=== PATIENT | female | born 2000 | race Caucasian/White ===

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

== ENCOUNTER 2020-10-05 19:07 | Outpatient (CLI) | payer MEDICAID | END 2020-10-05 19:08 | disposition EMS.NT | LOC: EMS 19:07 | DX: R10.32 Left lower quadrant pain (principal); R10.31 Right lower quadrant pain; R11.0 Nausea ==

== ENCOUNTER 2020-10-05 23:52 | Outpatient (CLI) | payer MEDICAID | END 2020-10-05 23:53 | disposition critical access hospital (66) | LOC: EMS 23:52 | DX: R10.9 Unspecified abdominal pain (principal) | CPT/HCPCS: A0425; A0427; A0999 ==

== ENCOUNTER 2020-10-06 00:12 | Inpatient (IN) | payer MEDICAID ==
[2020-10-06] MEDS ORDERED: ONDANSETRON 4 MG/2 ML VIAL IVP STA (00:22)
[2020-10-06] MEDS ORDERED: SODIUM CHLORIDE 0.9% 1,000 ML IV STA (00:22)
--- NOTE | 2020-10-06 00:24 | ED Physician Documentation ---
History of Present Illness - Stated complaint Stated Complaint: ABD PAIN - Chief complaint Chief Complaint: Abd Pain - History obtained from History obtained from: Patient - Additonal information Additional information: 19-year-old woman with history of gluten intolerance, possible lactose intolerance, and osteoporosis presents with right lower abdominal pain gradual in onset at 1 PM, intermittent, aching, radiating diffusely to the anterior abdomen, associated with nausea and one episode of vomitus after trying to take Motrin with soda and throwing it up. Pain improved at 1:30 PM after having a bowel movement but then recurred. Patient called EMS at 7 PM but was not brought to the hospital. She called again just prior to arrival and had 9 out of 10 pain at the time. An IV was placed and she was given 100 ucg of fentanyl IV with resulting 1 out of 10 pain. LMP 09/28 Review of Systems Ten Systems: 10 systems reviewed and negative Constitutional: denies: Fever, Chills Cardiac: denies: Chest pain / pressure Respiratory: denies: Dyspnea GI: reports: Abdominal Pain, Nausea, Vomiting. 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 : None HEENT: None Psych: None Musculoskeletal: Osteoarthritis Derm: None - Past Surgical History Past Surgical History: No - Present Medications Home Medications: Ambulatory Orders Medication Instructions Recorded Confirmed Albuterol 2.5 mg INH Q4H PRN 10/06/20 10/06/20 Alprazolam [Xanax] 0.5 mg PRN PRN 10/06/20 10/06/20 Sertraline [Zoloft] 25 mg PO DAILY 10/06/20 10/06/20 - Allergies Allergies/Adverse Reactions: Allergies Allergy/AdvReac Type Severity Reaction Status Date / Time gluten Allergy Nausea Verified 10/06/20 00:20 wheat Allergy Nausea Verified 10/06/20 00:20 - Social History Does the pt smoke?: No Smoking Status: Never smoker Does the pt drink ETOH?: No Does the pt have substance abuse?: No - Immunizations Immunizations are current?: Yes - POLST Patient has POLST: No PD ED PE NORMAL - Vitals Vital signs reviewed: Yes - General General: Alert and oriented X 3, No acute distress, Well developed/nourished - HEENT HEENT: Atraumatic, PERRL, EOMI - Neck Neck: Supple, no meningeal sign - Cardiac Cardiac: RRR - Respiratory Respiratory: No respiratory distress, Clear bilaterally - Abdomen Abdomen: Non tender, Non distended - Derm Derm: Normal color - Extremities Extremities: No deformity - Neuro Neuro: Alert and oriented X 3 - Psych Psych: Normal mood, Normal affect Results - Vitals Vitals: Oxygen O2 Source Room air - Labs Labs: Laboratory Tests 10/06/20 10/06/20 10/06/20 00:15 00:30 00:30 WBC 14.1 H RBC 5.12 Hgb 15.7 Hct 44.7 MCV 87.3 MCH 30.7 MCHC 35.1 RDW 13.3 Plt Count 315 MPV 9.0 Neut # (Auto) 12.8 H Lymph # (Auto) 1.1 L [place] # (Auto) 0.2 Eos # (Auto) 0.0 Baso # (Auto) 0.0 Absolute Nucleated RBC 0.00 Nucleated RBC % 0.0 Sodium 137 Potassium 3.8 Chloride 103 Carbon Dioxide 22 Anion Gap 12.0 BUN 14 Creatinine 0.6 Estimated GFR (MDRD) 127 Glucose 150 H Calcium 9.5 Total Bilirubin 1.0 AST 22 ALT 24 Alkaline Phosphatase 80 Total Protein 8.4 H Albumin 4.8 Globulin 3.6 Albumin/Globulin Ratio 1.3 Lipase 22 Urine Color YELLOW Urine Clarity CLEAR Urine pH 8.0 H Ur Specific [place] 1.020 Urine Protein 30 H Urine Glucose (UA) NEGATIVE Urine Ketones TRACE Urine Occult Blood NEGATIVE Urine Nitrite NEGATIVE Urine Bilirubin NEGATIVE Urine Urobilinogen 0.2 (NORMAL) Ur Leukocyte Esterase NEGATIVE Urine RBC 0-5 Urine WBC 0-3 Ur Squamous Epith Cells FEW Squamous Urine Bacteria Rare Urine Mucus Moderate Strands Ur Microscopic Review INDICATED Urine Culture Comments NOT INDICATED Urine HCG, Qual NEGATIVE Nasal Adenovirus (PCR) Nasal B. parapertussis DNA (PCR) Nasal Coronavir 229E PCR Nasal Coronavir HKU1 PCR Nasal Coronavir NL63 PCR Nasal Coronavir OC43 PCR Nasal Enterovir/Rhinovir PCR Nasal Influenza B PCR Nasal Influenza A PCR Nasal Parainfluen 1 PCR Nasal Parainfluen 2 PCR Nasal Parainfluen 3 PCR Nasal Parainfluen 4 PCR Nasal RSV (PCR) Nasal B.pertussis DNA PCR Nasal C.pneumoniae (PCR) Yo Human Metapneumo PCR Nasal M.pneumoniae (PCR) Nasal SARS-CoV-2 (PCR) 10/06/20 05:05 WBC RBC Hgb Hct MCV MCH MCHC RDW Plt Count MPV Neut # (Auto) Lymph # (Auto) [place] # (Auto) Eos # (Auto) Baso # (Auto) Absolute Nucleated RBC Nucleated RBC % Sodium Potassium Chloride Carbon Dioxide Anion Gap BUN Creatinine Estimated GFR (MDRD) Glucose Calcium Total Bilirubin AST ALT Alkaline Phosphatase Total Protein Albumin Globulin Albumin/Globulin Ratio Lipase Urine Color Urine Clarity Urine pH Ur Specific [place] Urine Protein Urine Glucose (UA) Urine Ketones Urine Occult Blood Urine Nitrite Urine Bilirubin Urine Urobilinogen Ur Leukocyte Esterase Urine RBC Urine WBC Ur Squamous Epith Cells Urine Bacteria Urine Mucus Ur Microscopic Review Urine Culture Comments Urine HCG, Qual Nasal Adenovirus (PCR) NOT DETECTED Nasal B. parapertussis DNA (PCR) NOT DETECTED Nasal Coronavir 229E PCR NOT DETECTED Nasal Coronavir HKU1 PCR NOT DETECTED Nasal Coronavir NL63 PCR NOT DETECTED Nasal Coronavir OC43 PCR NOT DETECTED Nasal Enterovir/Rhinovir PCR NOT DETECTED Nasal Influenza B PCR NOT DETECTED Nasal Influenza A PCR NOT DETECTED Nasal Parainfluen 1 PCR NOT DETECTED Nasal Parainfluen 2 PCR NOT DETECTED Nasal Parainfluen 3 PCR NOT DETECTED Nasal Parainfluen 4 PCR NOT DETECTED Nasal RSV (PCR) NOT DETECTED Nasal B.pertussis DNA PCR NOT DETECTED Nasal C.pneumoniae (PCR) NOT DETECTED Yo Human Metapneumo PCR NOT DETECTED Nasal M.pneumoniae (PCR) NOT DETECTED Nasal SARS-CoV-2 (PCR) NOT DETECTED PD MEDICAL DECISION MAKING - ED course ED course: 19-year-old woman presents with mild abdominal pain without any findings on vital signs or physical exam. Will obtain lab work and reevaluate. Differential considered. CT with large 9cm dermoid cyst in central pelvis. u/s performed with good flow to L ovary. R ovary nonvisualized. patient completely asymptomatic now. d/w Dr. Bahena who will see the patient. Dr. Bahena took patient to OR with suspicion for ovarian torsion. Departure - Departure Disposition: 66 [facility] DC/Xfer Clinical Impression: Dermoid cyst, Abdominal pain Condition: Good Discharge Date/Time: 10/06/20 06:00
[2020-10-06 00:40] LABS: BASOPHILS % (AUTO) 0.2 %; HCT - HEMATOCRIT 44.7 % (37.0-47.0); HGB - HEMOGLOBIN 15.7 g/dL (12.0-16.0); LYMPHOCYTES # (AUTO) 1.1 10^3/uL (1.5-3.5); LYMPHOCYTES % (AUTO) 7.7 %; MEAN CORPUSCULAR HEMOGLOBIN 30.7 pg (27.0-31.0); MEAN CORPUSCULAR HGB CONC 35.1 g/dL (32.0-36.0); MEAN CORPUSCULAR VOLUME 87.3 fL (81.0-99.0); MONOCYTES # (AUTO) 0.2 10^3/uL (0.0-1.0); MONOCYTES % (AUTO) 1.3 %; NEUTROPHILS # (AUTO) 12.8 10^3/uL (1.5-6.6); NEUTROPHILS % (AUTO) 90.5 %; PLT - PLATELET COUNT 315 10^3/uL (130-450); RED BLOOD COUNT 5.12 10^6/uL (4.20-5.40); RED CELL DISTRIBUTION WIDTH 13.3 % (12.0-15.0); WHITE BLOOD COUNT 14.1 x10^3/uL (4.8-10.8)
[2020-10-06 00:46] LABS: GLUCOSE, URINE (UA) NEGATIVE (NEGATIVE); KETONES,URINE (UA) TRACE mg/dL (NEGATIVE); LEUKOCYTE ESTERASE, URINE NEGATIVE (NEGATIVE); NITRITE,URINE NEGATIVE (NEGATIVE); OCCULT BLOOD,URINE NEGATIVE (NEGATIVE); PROTEIN,URINE 30 mg/dL (NEGATIVE); UROBILINOGEN,URINE 0.2 (NORMAL) E.U./dL (NORMAL)
[2020-10-06 00:52] LABS: BACTERIA,URINE Rare /HPF (None Seen); BILIRUBIN,URINE NEGATIVE (NEGATIVE); CLARITY,URINE CLEAR (CLEAR); HCG UR QUAL NEGATIVE; ICTOTEST,URINE NEGATIVE; MUCUS,URINE Moderate Strands; RBC,URINE 0-5 /HPF (0-5); SQUAMOUS EPITHELIAL CELL,UR FEW Squamous (<= Few); WBC,URINE 0-3 /HPF (0-5)
[2020-10-06 00:52] LABS: ALBUMIN 4.8 g/dL (3.2-5.5); ALBUMIN/GLOBULIN RATIO 1.3 (1.0-2.2); CALCIUM 9.5 mg/dL (8.5-10.3); CREATININE 0.6 mg/dL (0.4-1.0); POTASSIUM 3.8 mmol/L (3.5-5.0); TOTAL PROTEIN 8.4 g/dL (6.7-8.2)
[2020-10-06] MEDS ORDERED: HYDROmorphone 1 MG/ML CARPUJECT IVP STA ×2 (01:00→05:17)
[2020-10-06] MEDS ORDERED: IOPAMIDOL-300 100 ML VIAL ONE ×2 (01:15→01:32)
[2020-10-06] MEDS ORDERED: IOPAMIDOL-300 100 ML VIAL IVP ONE (01:43)
[2020-10-06] MEDS ORDERED: KETOROLAC 15 MG/ML VIAL IVP STA (03:06)
--- NOTE | 2020-10-06 04:49 | HISTORY & PHYSICAL EXAMINATION ---
History and Physical - History and Physical Identification: Patient is a 19-year-old G0, P0 female whose running 28-day cycles. Chief complaint right sided abdominal pelvic pain. History of present illness: Patient states that roughly 1330 this afternoon she developed right sided pelvic pain. It became progressively worse. She d escribes it as a crampy constant pain. She called the EMS service initially at 7:00 but declined being taken to the hospital. She called them again and presented. She has had a CT as well as an MRI that shows evidence of a 9 cm cystic mass in the pelvis it contains what appears to be fat as well as calcific nodules. This is compatible with a dermoid cyst. Patient denies any prior history of this. She states she is having regular 28-day cycles. Patient has received her Covid vaccinations. Past medical history: positive for osteopenia, celiac disease, and asthma Surgical history: none Allergies: none known Current medication:Celexa, alprazolam, and albuterol. Habits: patient denies use of tobacco and alcohol does occasional tetrahydrocannabinol Social history: Patient lives with boyfriend and his parents. She is currently unemployed. She is planning to move to [place] in 2 days. Family history: Patient states positive for diabetes. Review of systems: Patient states that she is in good health at this time she has occasional diarrhea secondary to her celiac disease. Physical examination: Patient is a well-developed well-nourished white female she is currently resting easily she has had Dilaudid as well as fentanyl at this point. HEENT pupils are equal round extraocular muscles intact Heart: Regular rate and rhythm without murmurs Lungs: Clear without rales or wheezes Back: No spinal or CVA tenderness noted. Abdomen is corpulent it has good bowel sounds. There is tenderness in the right lower quadrant. Labs:CMP is negative with the exception of elevated blood sugar at 150 CBC shows a white count of 14.1 hemoglobin is 9.7 platelets are 315. Her urine hCG is negative CT and MRI are both compatible with a dermoid cyst which is 9 cm in diameter. Impression: 19-year-old with a torsed right ovary with a 9 cm dermoid cyst Plan: We will perform laparotomy with removal of the right ovary and tube. Risks and benefits have been explained to the patient including those but not limited to, bleeding, infection, injury to the pelvic organs. She is aware of the potential for DVT with PE. She is also aware of the postop adhesions which could cause pain, bowel obstruction, as well as infertility.
[2020-10-06] MEDS ORDERED: fentaNYL 100 MCG/2 ML VIAL ONE (05:19)
[2020-10-06] MEDS ORDERED: MIDAZOLAM 2 MG/2 ML VIAL ONE (05:20)
[2020-10-06] MEDS ORDERED: BUPIVACAINE 0.25% PF 30 ML VIAL ONE (05:33)
--- NOTE | 2020-10-06 05:35 | ANESTHESIA ---
Pre-Anesthesia VS, & Labs - Diagnosis right ovarian cyst - Procedure exploratory laparatomy Vital Signs: Temp Pulse Resp BP Pulse Ox 36.8 C 100 18 152/87 H 95 10/06/20 00:14 10/06/20 01:02 10/06/20 01:02 10/06/20 01:02 10/06/20 03:00 Height: 5 ft 2 in Weight (kg): 108.862 kg Body Mass Index: 43.9 BMI Classification: Morbidly Obese - NPO >8 hours - Is Patient ?: No - Lab Results Current Lab Results: Laboratory Tests 10/06/20 00:30: Sodium 137, Potassium 3.8, Chloride 103, Carbon Dioxide 22, Anion Gap 12.0, BUN 14, Creatinine 0.6, Estimated GFR (MDRD) 127, Glucose 150 H, Calcium 9.5, Total Bilirubin 1.0, AST 22, ALT 24, Alkaline Phosphatase 80, Total Protein 8.4 H, Albumin 4.8, Globulin 3.6, Albumin/Globulin Ratio 1.3, Lipase 22 10/06/20 00:30: WBC 14.1 H, RBC 5.12, Hgb 15.7, Hct 44.7, MCV 87.3, MCH 30.7, MCHC 35.1, RDW 13.3, Plt Count 315, MPV 9.0, Neut # (Auto) 12.8 H, Lymph # (Auto) 1.1 L, [place] # (Auto) 0.2, Eos # (Auto) 0.0, Baso # (Auto) 0.0, Absolute Nucleated RBC 0.00, Nucleated RBC % 0.0 Fish Bones: 10/06/20 00:30 10/06/20 00:30 Home Medications and Allergies Home Medications: Ambulatory Orders Albuterol 2.5 mg INH Q4H PRN 10/06/20 Alprazolam [Xanax] 0.5 mg PRN PRN 10/06/20 Sertraline [Zoloft] 25 mg PO DAILY 10/06/20 Albuterol 2.5 mg INH Q4H PRN 10/06/20 Alprazolam [Xanax] 0.5 mg PRN PRN 10/06/20 Sertraline [Zoloft] 25 mg PO DAILY 10/06/20 Allergies/Adverse Reactions: Allergies Allergy/AdvReac Type Severity Reaction Status Date / Time gluten Allergy Nausea Verified 10/06/20 00:20 wheat Allergy Nausea Verified 10/06/20 00:20 Anes History & Medical History - Anesthetic History Anesthesia Complications: reports: No previous complications - Medical History Cardiovascular: reports: None Pulmonary: reports: Asthma Gastrointestinal: reports: None Urinary: reports: None Neuro: reports: None Musculoskeletal: reports: Osteoarthritis Endocrine/Autoimmune: reports: None Blood Disorders: reports: None Skin: reports: None Smoking Status: Never smoker Exam General: Alert Dental: WNL Mallampati classification: II Respiratory: Lungs clear Cardiovascular: Regular rate Plan Anesthesia Type: General Consent for Procedure(s) Verified and Reviewed: Yes Code Status: Attempt Resuscitation ASA classification: 2-Mild systemic disease Is this case an emergency?: Yes
[2020-10-06 06:20] LABS: B. PARAPERTUSSIS- RESP PCR PAN NOT DETECTED; B. PERTUSSIS- RESP PCR PANEL NOT DETECTED; C. PNEUMONIAE- RESP PCR PANEL NOT DETECTED; CORONAVIRUS 229E-RESP PCR NOT DETECTED; CORONAVIRUS HKU1-RESP PCR NOT DETECTED; CORONAVIRUS NL63-RESP PCR NOT DETECTED; CORONAVIRUS OC43-RESP PCR NOT DETECTED; HUMAN METAPNEUMOVIRUS NOT DETECTED; INFLUENZA A- RESP PCR PANEL NOT DETECTED; INFLUENZA B - RESP PCR PANEL NOT DETECTED; M. PNEUMONIAE- RESP PCR PANEL NOT DETECTED; PARAINFLUENZA VIRUS 1 NOT DETECTED; PARAINFLUENZA VIRUS 2 NOT DETECTED; PARAINFLUENZA VIRUS 3 NOT DETECTED; PARAINFLUENZA VIRUS 4 NOT DETECTED; RHINOVIRUS/ENTEROVIRUS NOT DETECTED; RSV- RESP PCR PANEL NOT DETECTED; SARS-CoV-2 -RESP PCR PANEL NOT DETECTED
[2020-10-06] MEDS ORDERED: DEXAMETHASONE 4 MG/ML VIAL ONE (06:23)
[2020-10-06] MEDS ORDERED: ONDANSETRON 4 MG/2 ML VIAL ONE (06:23)
[2020-10-06] MEDS ORDERED: BUPIVACAINE 0.25% PF 30 ML VIAL IM ONE (06:32)
[2020-10-06] MEDS ORDERED: LIDOCAINE-MPF 2% 5 ML VIAL ONE (06:34)
[2020-10-06] MEDS ORDERED: ACETAMINOPHEN 1,000 MG/100 ML 100 ML IV ONE (06:34)
[2020-10-06] MEDS ORDERED: PROPOFOL 200 MG/20 ML VIAL IVP ONE (06:34)
[2020-10-06] MEDS ORDERED: ROCURONIUM 50 MG/5 ML VIAL ONE (06:34)
[2020-10-06] MEDS ORDERED: KETOROLAC 30 MG/ML VIAL ONE (06:35)
[2020-10-06] MEDS ORDERED: ONDANSETRON 4 MG/2 ML VIAL IVP PRN ×2 (06:42→07:30)
[2020-10-06] MEDS ORDERED: fentaNYL 100 MCG/2 ML VIAL IVP PRN (06:42)
[2020-10-06] MEDS ORDERED: ePHEDrine 50 MG/ML VIAL IVP PRN (06:42)
[2020-10-06] MEDS ORDERED: NALOXONE 0.4 MG/ML VIAL IVP PRN (06:42)
[2020-10-06] MEDS ORDERED: MORPHINE 2 MG/ML CARPUJECT IVP PRN (06:42)
[2020-10-06] MEDS ORDERED: HYDROmorphone 0.5 MG/0.5 ML SYRINGE IVP PRN ×2 (06:42→07:30)
[2020-10-06] MEDS ORDERED: ATROPINE ABBOJECT 1 MG/10 ML SYRINGE IVP PRN (06:42)
[2020-10-06] MEDS ORDERED: LACTATED RINGERS 1,000 ML IV SCH (07:00)
--- NOTE | 2020-10-06 07:12 | CT Report ---
PROCEDURE: Abdomen/Pelvis W INDICATIONS: RLQ pain X 1 day with n/v CONTRAST: IV CONTRAST: Isovue 300 ml: 100 PO CONTRAST: *NO PO CONTRAST TECHNIQUE: After the administration of intravenous contrast, 5 mm thick sections acquired from the diaphragms to the symphysis. 5 mm thick coronal and sagittal reformats were acquired. For radiation dose reducti on, the following was used: automated exposure control, adjustment of mA and/or kV according to patti ent size. COMPARISON: Ultrasound pelvis, 10/06/2020. FINDINGS: Image quality: Excellent. ABDOMEN: Lung bases: Lung bases are clear. Heart size is normal. Solid organs: Liver and spleen are normal in size and enhancement. Gallbladder is normal. Biliary system is non dilated. Pancreas enhances normally. No adrenal nodules. Kidneys demonstrate normal size and enhancement, without hydronephrosis. Peritoneum and bowel: Bowel loops demonstrate normal wall thickness and caliber. No findings to sug gest acute appendicitis. No free fluid or air. Nodes and vessels: No retroperitoneal or mesenteric adenopathy by size criteria. Aorta and inferior vena cava are normal in size. Miscellaneous: No ventral hernias. PELVIS: Genitourinary: Bladder wall thickness is normal. Bladder is contracted. There is a predominantly cystic mass in the pelvis at midline measuring 8.2 x 9.3 x 8.3 cm. There is a fat-containing components measuring 2.6 x4.8 x 3.4 centimeter with partial calcification. It is mos t likely a large (dermoid cyst. Uterus is normal. No pathological free fluid in pelvis. Miscellaneous: No inguinal hernias or adenopathy. Bones: No suspicious bony lesions. No vertebral body compression fractures. IMPRESSION: 1. No acute abnormalities in abdomen or pelvis. 2. A large 8.2 x 9.3 x 8.3 cm cystic mass containing fat and calcification, compatible with a dermoid s cyst. No significant discrepancy with the preliminary interpretation. Reviewed by: Jacqueline Hernandez MD on 10/06/2020 7:11 AM PDT Approved by: Jacqueline Hernandez MD on 10/06/2020 7:11 AM PDT Station ID: [id number]
[2020-10-06] MEDS ORDERED: ROPIVACAINE 0.5% PF 20 ML AMPULE ONE (07:14)
[2020-10-06] MEDS ORDERED: SUGAMMADEX 200 MG/2 ML VIAL IVP ONE (07:20)
[2020-10-06] MEDS ORDERED: oxyCODONE 5 MG TABLET PO PRN (07:30)
[2020-10-06] MEDS ORDERED: LORazepam 2 MG/ML VIAL IVP PRN (07:30)
--- NOTE | 2020-10-06 07:35 | OPERATIVE REPORT ---
Operative Report - General Procedure Date: 10/06/20 Planned Procedure: Laparotomy with removal of right ovarian dermoid cyst and ovary. Pre-Op Diagnosis: Torsed 9 cm right ovarian dermoid cyst Procedure Performed: Laparotomy with right salpingo-oophorectomy Post Op Diagnosis: Torsed 9 cm right ovarian cyst - Procedure Note Primary Surgeon: Ryne Bahena MD Anesthesia Provider: Elizabeth Perez CRNA Anesthesia Technique: General ET tube IV Fluids (mL): 800 Estimated Blood Loss (mL): 10 Urine Output (mL): 350 Indications: Right tube and ovary torsed 9 cm right ovarian cyst. Findings: Upon entering the abdominal cavity the right ovary appeared to be twisted about 2 times around its pedicle. It was very discolored there is hemorrhage in the tube as well as the ovary. The left tube and ovary appeared to be free of disease. Complications: Patient was in the supine position following adequate endotracheal anesthesia patient was prepped for Green placement. This was performed following this her legs were straightened. She was prepped and draped in the usual fashion. A timeout was performed which concerns were identified. A Pfannenstiel incision was carried out which was roughly 28 cm in length. This was carried down to subcutaneous tissue to the fascia. The fascia was incised transversely then using both blunt and sharp dissection it was freed from the rectus abdominis. Hemostasis was obtained on the way in utilizing electrocautery. At this point an O'Agapito-O'Garibay retractor was placed care was taken to avoid any inclusion of the bowel into its placement. The bowel was then packed out of the way the 9 cm infarcted right ovary was brought up through the incision. A Ankit clamp was placed across the its pedicle. It was not untwisted prior to clamping and cutting. It appeared to be twisted roughly 2-3 times on its pedicle. The stump was then doubly ligated with 0 Vicryl. This area was inspected there is no bleeding from the pedicle. The left tube and ovary inspected appear to be free of disease. At this point the lap sponges were removed from the abdominal cavity. The O'Agapito-O'Garibay retractor was also removed. The peritoneum was closed utilizing 2-0 Vicryl, the rectus was reapproximated with figure eights of 2-0 Vicryl. At this point the rectus was irrigated and the fascia was closed utilizing a #0 PDS in a running fashion. Subcutaneous tissue was irrigated and closed utilizing 2-0 Vicryl the incision itself was closed utilizing 4-0 Monocryl subcuticular. A dressing was applied. Patient tolerated procedure well was taken recovery in stable condition. Sponge and needle counts were correct.
[2020-10-06] MEDS ORDERED: LACTATED RINGERS 1,000 ML IV ONE (07:44)
--- NOTE | 2020-10-06 08:31 | Ultrasound Report ---
PROCEDURE: Pelvic w/Doppler Complete INDICATIONS: 9cm dermoid cyst. also with RLQ pain TECHNIQUE: Real-time scanning was performed of the pelvic organs, with image documentation. Additional endovagi nal scanning was necessary due to incomplete visualization of the adnexal and endometrial structures by transabdominal scanning. COMPARISON: None. FINDINGS: No pathologic free abdominal or pelvic fluid. Uterus: Uterus is normal in size at 7.0 x 4.3 x 2.3 cm. The endometrium measures 7-8 mm in combined thickness. Ovaries: Large complex mass spanning both adnexal regions measures 10.4 x 7.4 x 9.3 cm. There are as sociated venous waveforms with Doppler interrogation. There is partially cystic appearance with fluid and echogenic nodular component presumed fat. Adjacent possible right ovarian parenchymal tissue seen superiorly.Otherwise, the right ovary is not separately identified. Left ovary measures 3.5 x 2.0 x 2.4 cm. IMPRESSION: Large complex adnexal mass with heterogeneous echogenicity as described above. This likely reflects d ermoid cyst as seen on the comparison CT dated same day. Recommend gynecological consultation for man agement. Findings are concordant with the preliminary study interpretation. Reviewed by: Carlos Eduardo Ulloa MD on 10/06/2020 8:30 AM PDT Approved by: Carlos Eduardo Ulloa MD on 10/06/2020 8:30 AM PDT Station ID: [id number]
[2020-10-06] MEDS: ACETAMINOPHEN 500 MG TABLET PO SCH ×3 (09:11→23:57)
[2020-10-06] MEDS: KETOROLAC 15 MG/ML VIAL IVP PRN ×3 (09:12→20:33)
[2020-10-06] MEDS: DOCUSATE SODIUM 100 MG CAPSULE PO SCH ×2 (09:12→20:33)
--- NOTE | 2020-10-06 10:09 | PHARMACY PROGRESS NOTE ---
- Best Possible Medication History Admit Date and Time: 10/06/20 0512 Processed by: Nursing Medication History completed: Yes Patient Interview: Completed (COMPLETED BY NURSING) As the person ultimately responsible for medication therapy, providers are able to order a medication from an existing home medication list in [facility] via the "Reconcile Routine" prior to Confirmation of that medication by database support. Such practice is discouraged except when the physician, in their clinical judgment, deems that a medical need exists for a medication without regard to previous use.
--- NOTE | 2020-10-06 10:39 | ANESTHESIA POST OP EVALUATION ---
Anesthesia Post Eval - Post Anesthesia Eval Vitals: Last Vital Signs Temp 37 C 10/06/20 08:30 Pulse 89 10/06/20 10:30 Resp 23 10/06/20 10:30 BP 128/73 10/06/20 10:30 Pulse Ox 97 10/06/20 10:30 CV Function Including HR & BP: Stable Pain Control: Satisfactory Nausea & Vomiting: Negative Mental Status: Baseline Respiratory Status: Airway Patent Hydration Status: Satisfactory Anesthesia Complications: None
[2020-10-06] MEDS: ALPRAZolam 0.25 MG TABLET PO PRN (17:56)
[2020-10-06] MEDS ORDERED: SERTRALINE 50 MG TABLET PO SCH (20:00)
[2020-10-07] MEDS: KETOROLAC 15 MG/ML VIAL IVP PRN ×2 (06:50→13:53)
[2020-10-07] MEDS: ACETAMINOPHEN 500 MG TABLET PO SCH ×2 (07:58→15:47)
[2020-10-07] MEDS: DOCUSATE SODIUM 100 MG CAPSULE PO SCH (07:58)
[2020-10-07] MEDS: ALPRAZolam 0.25 MG TABLET PO PRN (10:24)
[2020-10-07 15:36] VITALS: BP 139/65
--- NOTE | 2020-10-07 16:26 | Discharge Plan ---
Discharge Plan Problem Reviewed?: Yes Disposition: Home, Self Care Condition: Good Diet: Regular Activity Restrictions: Activity as Tolerated Shower Restrictions: Yes (KEEP INCISION DRY) Driving Restrictions: Yes (NOT WITHOUT DRIVERS LICENCE) No Smoking: If you smoke, Please STOP! Call for help. Follow-up with: Candida Morejon DO [Primary Care Provider] -
[2020-10-07] MEDS ORDERED: SERTRALINE 50 MG TABLET PO SCH (21:00)
--- NOTE | 2020-10-19 09:47 | PROVIDER PROGRESS NOTE ---
Subjective - General Admit Date: 10/06/20 Procedure Date: 10/06/20 Post Op Days: 13 - Review of Systems Wound/Incisions: positive: Dressing dry and intact General: positive: No symptoms (NOTES MARKED PAIN CONTROL, PAIN 4/10) Objective - Patient Data Reviewed Vital Signs: Yes - Lab Results Lab Results: 10/06/20 00:30 10/06/20 00:30 - Physical Exam Wound/Incisions: positive: Dressing dry and intact General Appearance: positive: Alert, Mild distress Respiratory: positive: Chest non-tender, No respiratory distress, Breath sounds nml Cardiovascular: positive: Regular rate & rhythm, No murmur Abdomen: positive: Non-tender (INCISION INTACT) Impression/Plan - Problem List Problem List: llATE ENTRY. SEEN 10/07/20 @ 1620 Patient status post right nephrectomy for torsed dermoid cyst. Patient is doing markedly improved. She is requesting to go home. Discharge medications oxycodone. She is instructed to follow-up in the clinic in 1 week.
== END 2020-10-07 17:43 | disposition home or self-care (01) | DRG 742 ==
LOC: EDUNIT# → ED 00:12 → SUPCPDRO 00:12 → SDS 05:11 → MS2 05:12
PROVIDERS: ADMIT Obstetrics & Gynecology; ATTEND Obstetrics & Gynecology
PROC: 0UT00ZZ Resection of Right Ovary, Open Approach (ICD-10-PCS; 2020-10-06)
PROC: 0UT50ZZ Resection of Right Fallopian Tube, Open Approach (ICD-10-PCS; principal; 2020-10-06 05:30)
DX: N83.53 Torsion of ovary, ovarian pedicle and fallopian tube (principal); Z68.41 Body mass index [BMI] 40.0-44.9, adult; D27.0 Benign neoplasm of right ovary; E66.01 Morbid (severe) obesity due to excess calories; K90.0 Celiac disease; J45.909 Unspecified asthma, uncomplicated
CPT/HCPCS: 0202U; 36415; 74177; 76856; 80053; 81001; 81025; 83690; 85025; 93975; 96361; 96374; 96375; 99285; A9270; J0131; J1170; J7120; Q9967; 81003; 87086

== ENCOUNTER 2020-10-26 17:22 | Outpatient (CLI) | payer MEDICAID ==
--- NOTE | 2020-10-27 15:36 | Ultrasound Report ---
PROCEDURE: Pelvic w/Transvaginal INDICATIONS: DERMOID CYST RIGHT OVARY TECHNIQUE: Real-time scanning was performed of the pelvic organs, with image documentation. Additional endovagi nal scanning was necessary due to incomplete visualization of the adnexal and endometrial structures by transabdominal scanning. COMPARISON: Prior pelvic ultrasound 10/06/2020. Prior CT also same day. FINDINGS: No pathologic free abdominal or pelvic fluid. Uterus: Uterus is normal in size at 3.4 x 4.1 x 6.9 cm. The endometrium measures 10.3 mm in combine d thickness. Ovaries: Right ovary surgically absent. Left ovary measures 4.6 x 3.1 x 3.5 cm with a 26 cc ovarian volume. There is a cyst at the left ovary measuring 2.5 x 2.5 x 2.2 cm simple in character. IMPRESSION: Absent right ovary, left ovary contains a simple appearing cyst measuring up to 2.5 cm. No complex cy st or solid mass at the left ovary is seen. Normal uterus. Reviewed by: Paul Valadez MD on 10/27/2020 3:35 PM PDT Approved by: Paul Valadez MD on 10/27/2020 3:35 PM PDT Station ID: [id number]
== END 2020-10-26 17:23 | disposition home or self-care (01) ==
LOC: DI 17:22
PROVIDERS: ATTEND Obstetrics & Gynecology
DX: N83.202 Unspecified ovarian cyst, left side (principal); D27.0 Benign neoplasm of right ovary